=== PATIENT | male | born 1990 | race Caucasian/White ===

== ENCOUNTER 2019-11-10 16:53 | Emergency (ER) | payer BC ==
[2019-11-10] MEDS ORDERED: Cyclobenzaprine 10 MG Tab ONE (18:00)
[2019-11-10] MEDS ORDERED: Naproxen 500 MG Tab ONE (18:00)
[2019-11-10] MEDS: Ketorolac 60 MG/2 ML SDV IM ONE (18:15)
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
--- NOTE | 2019-11-11 00:58 | CR ---
DATE OF SERVICE: 11/10/2019 CLINICAL DATA: Shoulder pain RIGHT SHOULDER: The distal clavicle does appear to be slightly elevated with respect to the acromion process suspicious for an AC separation. The coracoclavicular ligament appears intact. No other significant findings. [id number] [facility]
--- NOTE | 2019-11-11 01:04 | CR ---
DATE OF SERVICE: 11/10/2019 CLINICAL DATA: Shoulder pain PA AND LATERAL CHEST: Comparison made to a prior exam dated 01/26/2018. The heart size is normal. The lungs are clear. No pneumothorax. No pleural effusions. No evidence of acute intrathoracic disease. No displaced fractures. [id number] [facility]
== END 2019-11-10 18:30 | disposition home or self-care (01) ==
LOC: LB.ED 16:53
DX: S43.101A Unspecified dislocation of right acromioclavicular joint, initial encounter (principal); F17.210 Nicotine dependence, cigarettes, uncomplicated; V86.92XA Unspecified occupant of snowmobile injured in nontraffic accident, initial encounter
CPT/HCPCS: 71046; 73030-RT; 96372; 99283; 99284-25; A9270-GY; J1885

== ENCOUNTER 2021-12-03 12:21 | Emergency (ER) | payer BC, OTHER | END 2021-12-03 12:50 | disposition home or self-care (01) | LOC: LB.ED 12:21 | DX: T69.9XXA Effect of reduced temperature, unspecified, initial encounter (principal) | CPT/HCPCS: 99281; 99283 ==